=== PATIENT | male | born 1995 | race Caucasian/White ===

== ENCOUNTER 2017-02-22 16:59 | Inpatient (IN) ==
--- NOTE | 2017-02-22 18:05 | Emergency Department Note ---
Disposition Clinical Impression: Cellulitis of right arm, Failure of outpatient treatment Disposition: Admitted As Inpatient Condition: Good Referrals: NONE,PCP [Primary Care Provider] - Forms: ED Satisfaction Letter Skin/Abscess/FB HPI Chief complaint: ED Skin/Abscess/Foreign Body Stated complaint: worsening R Elbow Celluitis Time Seen by Provider: 02/22/17 17:59 Source: patient Limitations: no limitations Nursing Notes Reviewed: Yes Vital Signs Reviewed: Yes HPI Narrative: 21-year-old who was diagnosed several days ago with either cellulitis of the arm or a septic bursitis patient started on antibiotics. Seen at urgent care today due to worsening symptoms. No shaking chills fevers or systemic symptoms. Pt Subjective Complaint: rash Onset (ago): day(s) (Several) Tetanus Up to Date: yes Location: RUE Severity: mild, moderate Quality: aching Consistency: constant Improves with: none Worsens with: movement Context: recent antibiotic, other (Had worsening redness of the right elbow region now extends down recorders of the way down his forearm.) Associated symptoms: Denies: fever, chills, rigors Treatments prior to arrival: antibiotic Previous Rx's Medication Instructions Recorded Clindamycin [Cleocin] 300 mg PO TID 7 Days 02/18/17 HYDROcodone/Acet 5/325 mg [[place] 1 tab PO Q6H PRN #10 tab 02/18/17 5-325 mg] Allergies Allergy/AdvReac Type Severity Reaction Status Date / Time No Known Allergies Allergy Verified 02/22/17 17:38 All systems ED: reviewed and negative except as stated. Constitutional: Denies: fever, chills, weakness, weight change Eyes: Denies: eye pain, eye discharge, vision change ENT ED: Denies: ear pain, throat pain, dental pain, hearing loss, epistaxis, congestion, dysphagia Cardiovascular: Denies: chest pain, palpitations, dyspnea on exertion, edema, syncope Respiratory: Denies: cough, dyspnea, wheezes, hemoptysis, stridor Gastrointestinal: Denies: abdominal pain, nausea, vomiting, diarrhea, constipation, hematemesis, melena, hematochezia Genitourinary: Denies: urgency, dysuria, frequency, hematuria Musculoskeletal: Denies: back pain, neck pain, arthralgia, myalgia Integumentary: Denies: rash, abrasion, lesions Neurological: Denies: headache, weakness, numbness, paresthesias, confusion, abnormal gait, vertigo Psychiatric: Denies: anxiety, depression, suicidal thoughts, homicidal thoughts , auditory hallucinations, visual hallucinations Endocrine: Denies: fatigue Hematological/Lymphatic: Denies: easy bleeding, easy bruising Allergic/Immunologic: Denies: facial swelling, urticaria Past Medical History - Past Medical History Medical history: Reports: non-contributory Psychiatric history: Reports: no psych history - Social History Smoking Status: Never smoker Smokeless Tobacco Status: No Alcohol use: Reports: none Drug use: Reports: none Physical Exam - General Limitations: no limitations General appearance: alert - Head Head exam: atraumatic, normocephalic, normal inspection - Eye Eye exam: Present: normal appearance - ENT ENT exam: normal exam - Neck Neck exam: Present: normal inspection - Chest Chest inspection: Present: normal inspection - Cardiovascular Cardiovascular exam: Present: regular rate, normal rhythm, normal heart sounds - Abdominal Exam Abdominal exam: Present: soft, Non-Tender. Absent: tenderness, distention, guarding, rebound, rigidity - Expanded Upper Extremity Exam Elbow exam: Present: erythema (Ending around the elbow extending down onto the forearm previous area of cellulitis marked and the area of redness now extends significantly beyond that.) Forearm/Wrist exam: Present: erythema - Expanded Lower Extremity Exam Neurovascular/Tendon exam: Absent: motor deficit, sensory deficit, tendon deficit Gait: observed and normal - Back Exam Back exam: Present: normal inspection, full ROM. Absent: tenderness - Neurological Exam Neurological exam: Present: alert, oriented X3 - Psychiatric Psychiatric exam: Present: normal affect, normal mood - Skin Skin exam: Present: warm, dry, intact, normal color Course - Reevaluation(s) Reevaluation #1: 21-year-old male with redness around the right elbow is being treated for cellulitis, with worsening redness despite treatment. Patient has failed outpatient treatment. Time: 18:07 - Consultations Consultation #1: Discussed with , admit. Time: 20:26 Vital Signs Temperature 98.3 F 02/22/17 17:38 Pulse Rate 85 02/22/17 17:38 Respiratory Rate 20 02/22/17 17:38 Blood Pressure 134/89 02/22/17 17:38 O2 Sat by Pulse Oximetry 98 02/22/17 17:38 Temperature 98.3 F 02/22/17 17:38 Pulse Rate 89 02/22/17 19:47 Respiratory Rate 18 02/22/17 19:47 Blood Pressure 111/71 02/22/17 19:47 O2 Sat by Pulse Oximetry 99 02/22/17 19:47 Oxygen Delivery Oxygen Delivery Room Air Skin/Abscess/Foreign Body - Lab Data Lab results reviewed: Yes I reviewed the patient's lab results. Result diagrams: 02/22/17 18:12 02/22/17 18:12 Lab Results 02/22/17 02/22/17 02/22/17 Range/Units 18:12 18:12 18:12 WBC 10.1 (4.3-11.1) K/mcL RBC 5.24 (4.19-5.50) M/mcL Hgb 14.4 (12.9-16.9) g/dL Hct 44.0 (37.5-50.1) % MCV 84.0 (83.0-100.0) fL MCH 27.5 L (28.0-33.3) pg MCHC 32.7 (31.6-35.5) g/dL RDW 12.5 (11.5-14.5) % Plt Count 269 D (140-400) K/mcL MPV 9.7 (9.4-12.4) fL Immature Gran % 1.4 (0-4) % Seg Neutrophils % 71.9 % Lymphocytes % 16.9 % Monocytes % 6.8 % Eosinophils % 2.2 % Basophils % 0.8 % Neutrophils # 7.3 (1.6-8.9) K/mcL Lymphocytes # 1.7 (0.6-4.6) K/mcL Monocytes # 0.7 (0.0-1.3) K/mcL Eosinophils # 0.2 (0.0-0.6) K/mcL Basophils # 0.1 (0.0-0.2) K/mcL ESR 94 H (0-10) mm/hr Sodium 139 (136-145) mEq/L Potassium 4.8 H (3.5-4.5) mEq/L Chloride 104 (98-109) mEq/L Carbon Dioxide 27 (19-29) mEq/L BUN 16 (8-26) mg/dL Creatinine 1.02 (0.72-1.25) mg/dL Est GFR ( Amer) > 60 (> 60) Est GFR (Non-Af Amer) > 60 (> 60) BUN/Creatinine Ratio 16 (6-26) Glucose 87 (70-99) mg/dL Calculated Osmolality 289 (280-300) Calcium 10.1 (8.6-10.8) mg/dL - Radiology Data Radiology results reviewed: Yes I reviewed the patient's radiology results. Elbow X-Ray 02/22/17 18:02 IMPRESSION: Nonspecific soft tissue edema. D/ / 02/22/2017 19:01:33 Dmitri Davis MD / whitney Interpreting Provider: Dmitri Davis MD
[2017-02-22 18:22] LABS: Basophils # 0.1 K/mcL (0.0-0.2); Basophils % 0.8 %; Eosinophils # 0.2 K/mcL (0.0-0.6); Eosinophils % 2.2 %; Hemoglobin 14.4 g/dL (12.9-16.9); Immature Granulocytes % 1.4 % (0-4); Lymphocytes # 1.7 K/mcL (0.6-4.6); Lymphocytes % 16.9 %; Mean Corpuscular HGB Conc 32.7 g/dL (31.6-35.5); Mean Corpuscular Hemoglobin 27.5 pg (28.0-33.3); Mean Platelet Volume 9.7 fL (9.4-12.4); Monocytes # 0.7 K/mcL (0.0-1.3); Monocytes % 6.8 %; Neutrophils # 7.3 K/mcL (1.6-8.9); Platelet Count 269 K/mcL (140-400); Red Blood Count 5.24 M/mcL (4.19-5.50); Red Cell Distribution Width 12.5 % (11.5-14.5); Segmented Neutrophils % 71.9 %
[2017-02-22 18:32] LABS: BUN/Creatinine Ratio 16 (6-26); Blood Urea Nitrogen 16 mg/dL (8-26); Calcium 10.1 mg/dL (8.6-10.8); Carbon Dioxide 27 mEq/L (19-29); Chloride 104 mEq/L (98-109); Glucose 87 mg/dL (70-99); Osmolality,Calculated 289 (280-300); Potassium 4.8 mEq/L (3.5-4.5); Sodium 139 mEq/L (136-145); eGFR For African Americans > 60 (> 60); eGFR For Non-African Americans > 60 (> 60)
[2017-02-22] MEDS ORDERED: Vancomycin 1,000 MG in D5% in Water 250 ML IVPB ONE ×2 (19:08→22:00)
[2017-02-22] MEDS ORDERED: Ondansetron ODT 4 MG TAB.RAPDIS SL PRN (19:41)
[2017-02-22] MEDS ORDERED: Naloxone 0.4 MG/ML INJ IVP PRN (19:41)
[2017-02-22] MEDS ORDERED: Acetaminophen 325 MG TABLET PO PRN (19:41)
--- NOTE | 2017-02-22 20:05 | Internal Med History&Physical ---
Date of Encounter: 02/22/17 Time of Encounter: 19:59 Assessment and Plan (1) Cellulitis of right arm Current visit: Yes Status: Acute Patient presents with right elbow swelling and erythema after scraping his elbow on a nail. Patient reports his tetanus vaccine was updated at the Urgent care. Patient has been on 3-4 days of CLeocin with progression of erythema and continued subjective fevers and chills Vancomycin and zosyn IVPB IV fluids 0.9NS at 100mL/hr Tylenol and norco PRN for pain. (2) Failure of outpatient treatment Current visit: Yes Status: Acute Patient has been on Cleocin for 3-4 days for his right elbow cellulitis, and symptoms have continued to progress. Admitted for IV vancomycin and zosyn and fluids. (3) Hyperkalemia Current visit: Yes Status: Acute Patient with mild hyperkalemia, K of 4.8. IV fluids 0.9NS at 100mL/hr. Check chemistry in the morning. (4) DVT prophylaxis Current visit: Yes Status: Acute anti-embolic stockings lovenox 40mg SQ daily Internal Medicine - H&P: HPI Chief complaint: cellulitis Admitted From: Emergency Dept Plans for Post Hospital Care: Home History of present illness: Mr. Farris is a 21 year old male with no past medical history who presents with progressive redness and swelling to right elbow. Patient reports that last week , he scraped his elbow on a nail sticking out of a door frame in his garage, and subsequently developed redness and swelling in that elbow. He presented to urgent care and was started on cleocin on or Tuesday. He reports the redness has continued to spread despite being on the Cleocin for 3-4 days. He also reports subjective fever and chills. He reports the elbow is painful with full extension or full flexion, and mildly tender to palpation. He denies lightheadedness, chest pain, palpitations, shortness of breath, diarrhea, nausea or vomiting. Evaluation in the ED included an x-ray of the right elbow which showed nonspecific soft tissue edema. WBC was normal at 10.1. ESR was elevated to 94. The erythema on his right arm had spread beyond the duy evident from his UC visit. He was alert and oriented, in no distress. Heart with regular rate and rhythm, lungs clear bilaterally to auscultation. Past Med Surg Social Fam HX - Past Medical History Medical history: no medical history, non-contributory Psychiatric history: no psych history - Past Surgical History Surgical History: other (sinus surgery, tonsillectomy) - Social History Smoking Status: Never smoker Smokeless Tobacco Status: No Alcohol use: none Drug use: none - Family History Mother Living Status: Still Living Father Living Status: Still Living Internal Medicine - H&P: Meds Clindamycin [Cleocin] 300 mg PO TID 7 Days 02/18/17 [Rx] HYDROcodone/Acet 5/325 mg [[place] 5-325 mg] 1 tab PO Q6H PRN #10 tab 02/18/17 [Rx ] Allergies No Known Allergies Allergy (Verified 02/22/17 17:38) All Systems PM: A 10-system review of systems was performed and is negative for pertinent findings except as documented above in the HPI. - Constitutional Constitutional: chills, fever(s), no night sweats - EENT Eyes: no change in vision, no discharge, no pain, no photophobia Ears: no ear discharge, no ear pain, no tinnitus Nose, mouth and throat: no dysphagia, no nasal discharge, no neck pain, no sore throat - Cardiovascular Cardiovascular ROS IM: no chest pain, no diaphoresis, no dyspnea, no lightheadedness, no palpitations, no syncope - Respiratory Respiratory: no cough, no dyspnea, no wheezing, no excessive phlegm production - Gastrointestinal Gastrointestinal: no abdominal pain, no diarrhea, no hematemesis, no hematochezia, no melena, no nausea, no vomiting - Musculoskeletal Musculoskeletal ROS IM: joint swelling (right elbow), no numbness, no tingling - Integumentary Integumentary IM: erythema (right elbow), no rash, no unusual bruising - Neurological Neurological ROS: no confusion, no convulsions, no focal weakness, no numbness, no tingling, no tremor(s) - Hematologic/Lymphatic Hematologic/Lymphatic: no easy bruising - Constitutional Vitals: Temp Pulse Resp BP Pulse Ox 98.3 F 89 18 111/71 99 02/22/17 17:38 02/22/17 19:47 02/22/17 19:47 02/22/17 19:47 02/22/17 19:47 General appearance: Present: A&O X 3, pleasant, no acute distress - Head Head exam: Present: atraumatic, normocephalic - Eye Eye exam: Present: PERRL, conjuntiva pink, sclera anicteric Pupils: Present: PERRL - Neck Neck exam general surgery: Present: supple, trachea midline. Absent: lymphadenopathy - Respiratory Respiratory exam: Present: CTAB. Absent: accessory muscle use, rales, rhonchi, wheezes - Cardiovascular Cardiovascular exam: Present: RRR, +S1, +S2. Absent: diastolic murmur, gallop, rubs, systolic murmur - GI/Abdominal GI/Abdominal exam: Present: normal bowel sounds, soft, no peritoneal signs. Absent: distended, tenderness - Extremities Exam Extremities exam: Present: warm, radial pulses palpable and symetrical. Absent : calf tenderness, cyanotic, pedal edema - Neurological Exam Neurological exam: Present: CN II-XII intact, oriented X3, no focal deficits. Absent: pronater drift, facial droop, speech deficit - Skin Skin exam: Present: dry, intact Additional comments: right elbow warm, erythematous and swollen. erythema spreading proximally alf to wrist. Mildly tender to palpation. Internal Med - H&P Results - Labs CBC & Chem 7: 02/22/17 18:12 02/22/17 18:12 Labs: Short CBC 02/22/17 Range/Units 18:12 WBC 10.1 (4.3-11.1) K/mcL Hgb 14.4 (12.9-16.9) g/dL Hct 44.0 (37.5-50.1) % Plt Count 269 D (140-400) K/mcL Neutrophils # 7.3 (1.6-8.9) K/mcL BMP 02/22/17 18:12 Sodium 139 Potassium 4.8 H Chloride 104 Carbon Dioxide 27 BUN 16 Creatinine 1.02 Glucose 87 Calcium 10.1 - Impressions ITS Impressions Elbow X-Ray 02/22/17 18:02 IMPRESSION: Nonspecific soft tissue edema. D/ / 02/22/2017 19:01:33 Dmitri Davis MD / whitney Interpreting Provider: Dmitri Davis MD - Diagnostic Studies Other Images Additional comments: Elbow X-Ray 02/22/17 18:02
--- NOTE | 2017-02-22 20:23 | Event Note ---
Date of Encounter: 02/22/17 Time of Encounter: 20:20 Patient seen and examined with nurse practitioner. Agree with assessment plan. Patient presents with right elbow cellulitis after puncture wound with rusted nail. Receives 5 days of clindamycin with worsening cellulitis. Has good range of motion at the elbow joint. No effusion on elbow x-ray or foreign body. ESR 94. He will be admitted as an inpatient for failed outpatient oral antibiotic therapy. Start vancomycin Zosyn. Blood cultures. Full code
[2017-02-22] MEDS: 0.9 % Sodium Chloride 1,000 ML IVC SCH (23:45)
[2017-02-22] MEDS: Piperacillin/Tazobactam 3.375 GM in D5% in Water (Mini-Bag+) 100 ML IVPB SCH (23:46)
[2017-02-22] MEDS: *HR* HYDROcodone/Acet 5/325 mg TABLET PO PRN (23:46)
[2017-02-23] MEDS ORDERED: Vancomycin 1,000 MG in D5% in Water 250 ML IVPB ONE (02:00)
[2017-02-23 04:14] LABS: Basophils # 0.1 K/mcL (0.0-0.2); Basophils % 0.8 %; Eosinophils # 0.2 K/mcL (0.0-0.6); Eosinophils % 1.9 %; Hematocrit 41.1 % (37.5-50.1); Hemoglobin 13.9 g/dL (12.9-16.9); Immature Granulocytes % 2.4 % (0-4); Lymphocytes # 2.2 K/mcL (0.6-4.6); Mean Corpuscular HGB Conc 33.8 g/dL (31.6-35.5); Mean Corpuscular Volume 82.9 fL (83.0-100.0); Mean Platelet Volume 9.9 fL (9.4-12.4); Monocytes # 0.9 K/mcL (0.0-1.3); Monocytes % 7.6 %; Neutrophils # 7.7 K/mcL (1.6-8.9); Platelet Count 237 K/mcL (140-400); Red Blood Count 4.96 M/mcL (4.19-5.50); Red Cell Distribution Width 12.5 % (11.5-14.5); Segmented Neutrophils % 68.3 %
[2017-02-23 04:26] LABS: BUN/Creatinine Ratio 14 (6-26); Blood Urea Nitrogen 14 mg/dL (8-26); Calcium 9.7 mg/dL (8.6-10.8); Carbon Dioxide 24 mEq/L (19-29); Chloride 102 mEq/L (98-109); Glucose 100 mg/dL (70-99); Osmolality,Calculated 285 (280-300); Sodium 137 mEq/L (136-145); eGFR For African Americans > 60 (> 60); eGFR For Non-African Americans > 60 (> 60)
[2017-02-23] MEDS: *HR* Enoxaparin 40 MG/0.4 ML SYRINGE SQ SCH (05:37)
[2017-02-23] MEDS: Piperacillin/Tazobactam 3.375 GM in D5% in Water (Mini-Bag+) 100 ML IVPB SCH ×2 (08:42→16:24)
[2017-02-23] MEDS ORDERED: Vancomycin 2,000 MG in D5% in Water 250 ML IVPB SCH (09:00)
[2017-02-23] MEDS: 0.9 % Sodium Chloride 1,000 ML IVC SCH (10:59)
[2017-02-23] MEDS: Vancomycin 2,000 MG in D5% in Water 500 ML IVPB SCH (12:32)
[2017-02-23] MEDS: *HR* HYDROcodone/Acet 5/325 mg TABLET PO PRN ×2 (12:35→20:14)
--- NOTE | 2017-02-23 15:14 | Internal Med Progress Note ---
Date of Encounter: 02/23/17 Time of Encounter: 09:20 - Assessment and plan (1) Cellulitis of right arm Current Visit: Yes Status: Acute Assessment and plan: Right elbow swelling, pain and erythema - secondary to minor injury from a rusted nail Tetanus vaccine updated at the Urgent care about 5 days ago failed outpatient therapy with Clindamycin Vancomycin, Zosyn IVPB, IV fluids Tylenol and norco PRN for pain anticipate d/c home tomorrow with Bactrim DS and Augmetin (2) Failure of outpatient treatment Current Visit: Yes Status: Acute Assessment and plan: Patient has been on Cleocin for 3-4 days for his right elbow cellulitis - symptoms continued to progress requires IV antibiotics now (3) DVT prophylaxis Current Visit: Yes Status: Acute Assessment and plan: continue Lovenox sc - Time Spent With Patient 25 - 35 minutes - Subjective Interval history: Examined this morning. Patient is awake and alert. Not in any distress. Tolerating oral diet. Denies chest pain or shortness of breath. No fever. Admitted for cellulitis of right elbow. Seems to be improving. Patient states he feels better. He has full ROM of right elbow. No other acute events or complaints. - Constitutional Vitals: Temp Pulse Resp BP Pulse Ox 98.2 F 82 16 132/82 96 02/23/17 15:00 02/23/17 15:00 02/23/17 15:00 02/23/17 15:00 02/23/17 15:00 General appearance: Present: A&O X 3, pleasant, no acute distress, obese, answers questions appropriately - Head Head exam: Present: atraumatic - Eye Eye exam: Present: EOMI - Neck Neck exam general surgery: Present: supple - Respiratory Respiratory exam: Absent: CTAB, rales, rhonchi, stridor, wheezes, tachypnea - Cardiovascular Cardiovascular exam: Present: RRR, +S1, +S2 - GI/Abdominal GI/Abdominal exam: Present: soft, no peritoneal signs. Absent: distended, firm , guarding, rigid, tenderness - Extremities Exam Extremities exam: Present: radial pulses palpable and symetrical. Absent: cyanotic, pedal edema Additional comments: right elbow tenderness+, erythema+ which seems to be improving, swelling over right elbow and right forearm+, full ROM present - Neurological Exam Neurological exam: Present: alert, oriented X3, no focal deficits Internal Medicine: Result - Labs CBC & Chem 7: 02/23/17 03:46 02/23/17 03:46 Labs: Short CBC 02/23/17 Range/Units 03:46 WBC 11.3 H (4.3-11.1) K/mcL Hgb 13.9 (12.9-16.9) g/dL Hct 41.1 (37.5-50.1) % Plt Count 237 (140-400) K/mcL Neutrophils # 7.7 (1.6-8.9) K/mcL BMP 02/23/17 03:46 Sodium 137 Potassium 4.0 Chloride 102 Carbon Dioxide 24 BUN 14 Creatinine 1.03 Glucose 100 H Calcium 9.7 - VTE Documentation of Mechanical Device: Graduated compression elastic hosiery Consult Discharge Plan - Plan Referrals: NONE,PCP [Primary Care Provider] -
[2017-02-24] MEDS: Piperacillin/Tazobactam 3.375 GM in D5% in Water (Mini-Bag+) 100 ML IVPB SCH ×2 (00:50→08:09)
[2017-02-24] MEDS: Vancomycin 2,000 MG in D5% in Water 500 ML IVPB SCH ×2 (01:53→11:33)
[2017-02-24 05:33] LABS: Basophils # 0.2 K/mcL (0.0-0.2); Basophils % 1.9 %; Eosinophils # 0.2 K/mcL (0.0-0.6); Eosinophils % 2.3 %; Hemoglobin 14.9 g/dL (12.9-16.9); Immature Granulocytes % 7.6 % (0-4); Lymphocytes % 21.1 %; Mean Corpuscular HGB Conc 32.4 g/dL (31.6-35.5); Mean Corpuscular Hemoglobin 27.2 pg (28.0-33.3); Mean Corpuscular Volume 83.9 fL (83.0-100.0); Mean Platelet Volume 9.6 fL (9.4-12.4); Monocytes # 0.7 K/mcL (0.0-1.3); Neutrophils # 5.7 K/mcL (1.6-8.9); Platelet Count 300 K/mcL (140-400); Red Blood Count 5.48 M/mcL (4.19-5.50); Red Cell Distribution Width 12.3 % (11.5-14.5); Segmented Neutrophils % 60.1 %
[2017-02-24 06:13] LABS: Platelet Estimate Normal (Normal); Reactive Lymphocytes Present (Not Present)
[2017-02-24] MEDS: *HR* Enoxaparin 40 MG/0.4 ML SYRINGE SQ SCH (06:49)
[2017-02-24 07:47] VITALS: BP 127/85
--- NOTE | 2017-02-24 13:28 | Discharge Summary ---
Date of Encounter: 02/24/17 Time of Encounter: 08:45 - Discharge Diagnosis (1) Cellulitis of right arm Priority: Primary Status: Acute Comments: Now improved - continue antibiotics at home (2) Failure of outpatient treatment Priority: Primary Status: Acute - Discharge Medications Prescriptions: Amoxicillin/Clavulanate [Augmentin] 875 mg PO BIDWM 10 Days HYDROcodone/Acet 5/325 mg [[place] 5-325 mg] 1 tab PO Q6H PRN #7 tab PRN Reason: Pain Sulfamethoxazole/Trimeth DS [Bactrim DS] 1 each PO BID 10 Days Home Medications: Amoxicillin/Clavulanate [Augmentin] 875 mg PO BIDWM 10 Days 02/24/17 [Rx] HYDROcodone/Acet 5/325 mg [[place] 5-325 mg] 1 tab PO Q6H PRN #7 tab 02/24/17 [Rx] Sulfamethoxazole/Trimeth DS [Bactrim DS] 1 each PO BID 10 Days 02/24/17 [Rx] Allergies/Adverse Reactions: Allergies No Known Allergies Allergy (Verified 02/22/17 17:38) Date of admission: 02/22/17 20:41 Primary care physician: PCP NONE Anticipated date of discharge: 02/24/17 - Patient Status Disposition: Home, Self-Care Condition: Good Functional capacity at discharge: independent ambulation Overall status at discharge: patient is progressing back to baseline - Discharge Instructions Instructions: Sulfamethoxazole/Trimethoprim (By mouth), Hydrocodone/ Acetaminophen (By mouth), Amoxicillin/Clavulanate Potassium (By mouth), Cellulitis (DC) Follow Up With: Mario Coleman PUBLIC RELATIONS COORDINATOR [Advanced Practice Nurse] - 03/09/17 10:15 am Forms: Inpatient Work/School Release - Diet and Activity Activity: resume usual activities as tolerated Diet: advance to your usual diet Hospital course: Mr. Farris is a 21 year old male with no significant past medical history. He presents to ED with complaints of pain and swelling and redness to right elbow and right forearm. Patient stated that symptoms started about 1 week ago. Patient apparently had a minor injury where he scratched his elbow against a rusted nail. He initially presented to an urgent care and was started on clindamycin. He also received a tetanus shot at the urgent care. Patient's symptoms and gradually worsened. The redness and swelling and pain worsened. Initial evaluation in the ED revealed elevated white count and elevated ESR. X- ray revealed nonspecific soft tissue edema. Patient had no other complaints. Patient was started on IV Zosyn and IV vancomycin empirically. Blood cultures were drawn and are negative. Patient's symptoms improved with the IV antibiotics. He has full range of motion at his right elbow. Denies pain and says his swelling and redness has improved significantly. He does not have fever. He is tolerating oral diet well and ambulate well. Since the patient's symptoms have improved with IV antibiotics, he did not require orthopedic consult during his stay. Patient is being discharged on antibiotics by mouth. He has been advised to complete the antibiotic course. He is also been advised to return to ER if his symptoms start to worsen again. Patient and his family member have been explained about his condition and plan of care. They understood and agreed. No unanswered questions. No acute events or complications during his stay in the hospital. Patient is being discharged in a stable condition. - Time Spent with Patient Total time spent providing and/or coordinating discharge services: Less than 30 minutes - Constitutional Vitals: Temp Pulse Resp BP Pulse Ox 98.3 F 74 18 127/85 100 02/24/17 07:44 02/24/17 07:44 02/24/17 07:44 02/24/17 07:44 02/24/17 07:44 General appearance: Present: A&O X 3, pleasant, no acute distress, obese, answers questions appropriately - Head Head exam: Present: atraumatic - Eye Eye exam: Present: EOMI - ENT ENT exam: Present: mucous membranes moist - Neck Neck exam general surgery: Present: supple - Respiratory Respiratory exam: Present: CTAB. Absent: rales, rhonchi, stridor, wheezes, tachypnea - Cardiovascular Cardiovascular exam: Present: RRR, +S1, +S2 - GI/Abdominal GI/Abdominal exam: Present: soft, no peritoneal signs. Absent: distended, firm , guarding, rigid, tenderness - Extremities Exam Extremities exam: Present: radial pulses palpable and symetrical. Absent: cyanotic, pedal edema, tenderness Additional comments: Cellulitis with swelling, erythema and tenderness over right elbow and right forearm has now improved significantly - Neurological Exam Neurological exam: Present: alert, oriented X3, no focal deficits - VTE Documentation of Mechanical Device: Graduated compression elastic hosiery
[2017-02-24] MEDS ORDERED: Aminoglycoside Consult 1 EACH MC ONE (14:18)
== END 2017-02-24 14:19 | disposition home or self-care (01) | DRG 603 ==
LOC: 3ANU 16:59 → EMEROO 16:59 → 3ANU 21:01
PROVIDERS: ADMIT Family Medicine; ATTEND Family Medicine